=== PATIENT | male | born 1980 | race Caucasian/White ===

== ENCOUNTER 2017-03-14 02:11 | Inpatient (IN) | payer OTHER ==
[~2017-03-14] VITALS: Ht 177.8 cm; Wt 108.6 kg
--- NOTE | ~2017-03-14 | PR ---
[place], [place] [id number] UNIT #: [id number] ROOM: 404 DOCTOR: KWESI FIERRO MD BIRTHDATE: [birth year] DOS: 03/15/2017 SUBJECTIVE: The patient was seen at the Cardiology Department just prior to his exercise stress test. He is a 36-year-old man with a history of morbid obesity, who is status post gastric bypass surgery. He did have a myocardial infarction at age 31. Reportedly, a catheterization showed an occluded vessel, which could not be crossed and the patient has been managed medically since then. He came in to the hospital on this occasion because of sensations of rapid heartbeat which occurred after a session of heavy drinking. Since he has been in the hospital, he has had no documented arrhythmias. He did have some chest discomfort which was mild, but given his history of heart attack at an early age, it was felt that he should undergo a stress test at this time. PHYSICAL EXAMINATION: VITAL SIGNS: Today his pulse is 64 and regular, blood pressure is 135/80. He is afebrile. NECK: Supple. He has no jugular distention. Carotids are full. LUNGS: Respirations are unlabored. His chest is clear to auscultation and percussion. HEART: Has a regular rhythm. He has a soft S4 gallop, but no S3. ABDOMEN: Benign. EXTREMITIES: Showed no edema. DIAGNOSTIC STUDIES: Serial cardiac biomarkers have been unremarkable. IMPRESSION: 1. Atypical chest discomfort. 2. Palpitations, possibly exacerbated by heavy alcohol intake. 3. History of morbid obesity, status post gastric bypass surgery. PLAN: Thus far his evaluation has been benign. We will proceed with an exercise stress test today. Further recommendations will depend upon the results of the stress test. [facility] and I thank the hospitalist physicians for asking our advice regarding his care. [place], [place] PROGRESS NOTE NAME: KWESI MASTERS J UNIT #: [id number] ROOM: 404 DOCTOR: KWESI FIERRO MD BIRTHDATE: [birth year] KWESI FIERRO MD CM:PNTRANS [id number] KWESI FIERRO MD 03/15/17 1328 interface
[~2017-03-14 02:11] MED LIST: ASA; BUPROPION HCL200 MG; CEFUROXIME AXE250 MG PO; DAYPRO600 M1 PO; DUONEB 3 MG/3 ML3 M1 INH; IBU-8800 MG PO; ISOSORBIDE MONO30 M1 PO; ISOSORBIDE30 MG; LEVAQUIN750 M1 PO; LISINOPRIL5 MG; LOPRESSOR25 MG PO; LOVASTATIN20 MG PO; LOVESTATIN; MOTRIN800 MG PO; NITRO-DUR0.4 MG/HR; NORFLEX100 MG PO; PLAVIX75 MG; PREDNISONE10 MG PO; SKELAXIN800 MG PO; [UNRECOGNIZED DRUG - OTHER] PO
[2017-03-14 02:23] VITALS: BP 152/96
[2017-03-14 02:35] LABS: BASO # 0.1 10*3/uL (0.0-0.1); BASO % 0.8 % (0.0-1.0); EOS # 0.2 10*3/uL (0.0-0.4); EOS % 3.2 % (1.0-4.0); HEMATOCRIT 40.4 % (42.0-52.0); HEMOGLOBIN 13.5 g/dl (14.0-18.0); LYMPH # 2.3 10*3/uL (1.3-4.4); LYMPH % 36.5 % (27.0-41.0); MEAN CELL VOLUME 91.2 fl (80.0-94.0); MEAN CORPUSCULAR HGB 30.5 pg (27.0-31.0); MEAN CORPUSCULAR HGB CONC 33.4 g/dl (33.0-37.0); MONO # 0.7 10*3/uL (0.1-1.0); MONO % 10.9 % (3.0-9.0); NEUT % 48.4 % (47.0-73.0); PLATELET COUNT AUTOMATED 209 10*3/uL (130-400); RED BLOOD COUNT 4.43 10*6/uL (4.50-5.90); WHITE BLOOD COUNT 6.2 10*3/uL (4.8-10.8)
[2017-03-14 02:45] LABS: ACT PARTIAL THROMBO TIME 27.5 SECONDS (20.8-31.5)
[2017-03-14 02:52] LABS: ALBUMIN 3.7 gm/dl (3.1-4.5); ALKALINE PHOSPHATASE 80 U/L (45-117); BUN 18 mg/dl (7-24); CHLORIDE 105 mmol/L (98-107); CREATININE 0.75 mg/dL (0.70-1.30); POTASSIUM 3.2 mmol/L (3.5-5.1); SGOT/AST 43 IU/L (3-35); SGPT/ALT 59 U/L (12-78); SODIUM 142 mmol/L (136-145); TOTAL PROTEIN 7.1 gm/dL (6.4-8.2)
[2017-03-14 02:54] LABS: TROPONIN I < 0.015 ng/ml (<0.045)
[2017-03-14 04:40] VITALS: BP 136/74
--- NOTE | 2017-03-14 04:40 | NUR ---
A 36 MALE, admitted to , under the services of YANET Schultz DO with a diagnosis of CHEST PAIN W/MODERATE RISK OF ACUTE CORONARY SYNDROME, HEART PALPITATIONS. Chief complaint is CHEST PAIN. Patient arrived via ambulatory from ER. Monitor applied. Initial assessment completed. Vital signs taken and recorded. YANET SCHULTZ DO notified of admission to the unit. Orders received. See assessment for past medical history, medications and allergies. Patient and/or family oriented to unit. [facility]. Clothing/patient valuable form completed. MEDS REVIEWED WITH MARY MENDOZA
[2017-03-14] MEDS ORDERED: PRILOSEC20 M1 PO (05:01)
[2017-03-14] MEDS ORDERED: ASPIRIN ADULT L81 M2 PO (05:01)
[2017-03-14] MEDS ORDERED: B12100 MC1 PO (05:02)
[2017-03-14] MEDS ORDERED: CALCIUM 250+D1 EACH PO (05:03)
[2017-03-14] MEDS ORDERED: MULTIVITAMINS1 EAC5 PO (05:04)
[2017-03-14 08:00] VITALS: BP 119/66
--- NOTE | 2017-03-14 11:34 | NUR ---
DR. ROSENBAUM OFFICE NOTIFIED OF CONSULT REGARDING CHEST PAIN AND PALPITATIONS.
[2017-03-14 12:00] VITALS: BP 130/76
[2017-03-14 16:00] VITALS: BP 137/75
--- NOTE | 2017-03-14 16:09 | NUR ---
DR FIERRO IN TO SEE PT. PT FOR STRESS TEST IN AM.
[2017-03-14 20:00] VITALS: BP 144/88
--- NOTE | 2017-03-14 20:40 | NUR ---
CALLED DR. AVALOS ON [facility] PER PT. PT CONFIRMED HE DOES TAKE PLAVIX EVERY NIGHT. WILL REKHA TO MONITOR PT.
[2017-03-15] VITALS: BP 101/55
[2017-03-15 06:56] LABS: BASO % 0.7 % (0.0-1.0); EOS # 0.2 10*3/uL (0.0-0.4); EOS % 2.9 % (1.0-4.0); HEMATOCRIT 37.7 % (42.0-52.0); HEMOGLOBIN 12.9 g/dl (14.0-18.0); LYMPH # 1.9 10*3/uL (1.3-4.4); LYMPH % 34.2 % (27.0-41.0); MEAN CELL VOLUME 91.1 fl (80.0-94.0); MEAN CORPUSCULAR HGB 31.2 pg (27.0-31.0); MEAN CORPUSCULAR HGB CONC 34.2 g/dl (33.0-37.0); MEAN PLATELET VOLUME 10.2 fl (9.6-12.3); MONO # 0.7 10*3/uL (0.1-1.0); MONO % 11.9 % (3.0-9.0); NEUT # 2.7 10*3/uL (2.3-7.9); NEUT % 50.1 % (47.0-73.0); PLATELET COUNT AUTOMATED 181 10*3/uL (130-400); RED BLOOD COUNT 4.14 10*6/uL (4.50-5.90); RED CELL DISTRI WIDTH 13.1 % (0-14.5); WHITE BLOOD COUNT 5.4 10*3/uL (4.8-10.8)
[2017-03-15 07:20] LABS: ALBUMIN 3.2 gm/dl (3.1-4.5); ALKALINE PHOSPHATASE 75 U/L (45-117); BUN 9 mg/dl (7-24); CHLORIDE 105 mmol/L (98-107); CHOLESTEROL 120 mg/dL (<200); CREATININE 0.62 mg/dL (0.70-1.30); FREE T4 1.09 ng/dl (0.76-1.46); HDL CHOLESTEROL 76 mg/dl (40-60); POTASSIUM 3.9 mmol/L (3.5-5.1); SGOT/AST 21 IU/L (3-35); SGPT/ALT 44 U/L (12-78); SODIUM 140 mmol/L (136-145); TOTAL PROTEIN 6.5 gm/dL (6.4-8.2)
[2017-03-15 07:25] LABS: LDL CHOLESTEROL 34 mg/dL (9-159); PHOSPHOROUS 3.9 mg/dL (2.5-4.9); TRIGLYCERIDES 49 mg/dl (<150); VLDL CHOLESTEROL 10 mg/dL (6-40)
[2017-03-15 07:25] LABS: ACT PARTIAL THROMBO TIME 27.5 SECONDS (20.8-31.5)
[2017-03-15 07:28] LABS: VITAMIN D, 25-HYDROXY 29.3 ng/mL (30-100)
[2017-03-15 08:00] VITALS: BP 135/80
--- NOTE | 2017-03-15 08:45 | NUR ---
PT OFF FLOOR FOR STRESS TEST.
--- NOTE | 2017-03-15 09:00 | NUR ---
Straddle Truck Operator in to talk to patient. Patient states lives at home with . There are few steps in the home. Physician: anibal sanchez [facility]: none Patient's level of ADLs: INDEPENDENT Patient has working utilities: all working DME: none Follow-up physician's appointment after d/c: will be made by hospitalist nurse director upon discharge Does patient want to access PORTAL?: no Discharge plan discussed with patient, patient lives at home with , is independent in adls and ambulation, works, drives, patient will be going back home and denies any home needs. LORI MCALLISTER
--- NOTE | 2017-03-15 11:00 | NUR ---
INFORMED CONSENT SIGNED FOR CARDIOLYTE STRESS TEST WITH DR. FIERRO. RESTING EKG NSR, HR 73, BP 140/90. COMPLETED 12:00 OF A STANDARD EARL PROTOCOL COMPLETING 3:00 OF STAGE IV, 3.4 MPH/14% GRADE. PEAK HEART RATE OF 158 ACHIEVED WHICH IS 87% PREDICTED MAXIMUM AND A PEAK BP OF 180/60. NO ARRHYTHMIAS OR ST CHANGES NOTED. TEST TERMINATED D/T FATIGUE. HAS A HIGH EXERCISE TOLERANCE. LAST RECOVERY HR 104, BP 174/82. WAITING NUCLEAR SCANNING IN STABLE CONDITION.
--- NOTE | 2017-03-15 16:15 | NUR ---
Discharge instructions reviewed with patient/family. Patient receptive and verbalizes understanding. Follow-up care arranged. Written instructions given to patient/family. ALDAIR LOUIS
== END 2017-03-15 16:15 | disposition home or self-care (01) | DRG 303 ==
LOC: ED 02:11 → 4E 04:18 → EDHOLD 04:18 → 4E 04:26
PROVIDERS: Emergency Medicine Emergency Medical Services; Hospitalist; ADMIT Internal Medicine
PROC: 4A02XM4 Measurement of Cardiac Total Activity, External Approach (ICD-10-PCS; principal; 2017-03-15)
DX: I25.89 Other forms of chronic ischemic heart disease (principal); E66.01 Morbid (severe) obesity due to excess calories; I25.10 Atherosclerotic heart disease of native coronary artery without angina pectoris; E78.00 Pure hypercholesterolemia, unspecified; I10 Essential (primary) hypertension; F10.10 Alcohol abuse, uncomplicated; E78.5 Hyperlipidemia, unspecified; Z79.899 Other long term (current) drug therapy; Z79.82 Long term (current) use of aspirin; Z82.49 Family history of ischemic heart disease and other diseases of the circulatory system; Z98.84 Bariatric surgery status; I25.2 Old myocardial infarction; Z68.34 Body mass index [BMI] 34.0-34.9, adult

== ENCOUNTER 2019-07-01 19:21 | Emergency (ER) | payer OTHER ==
[~2019-07-01] VITALS: Ht 180.3 cm; Wt 111.1 kg
[~2019-07-01 19:21] MED LIST changes: +ASPIRIN ADULT L81 M2 PO; +B12100 MC1 PO; +CALCIUM 250+D1 EACH PO; +MULTIVITAMINS1 EAC5 PO; +PRILOSEC20 M1 PO
[2019-07-01 21:12] LABS: BASO # 0.1 10*3/uL (0.0-0.1); BASO % 0.7 % (0.0-1.0); EOS % 0.4 % (1.0-4.0); HEMATOCRIT 41.1 % (42.0-52.0); HEMOGLOBIN 13.8 g/dl (14.0-18.0); LYMPH # 1.3 10*3/uL (1.3-4.4); LYMPH % 12.6 % (27.0-41.0); MEAN CELL VOLUME 91.7 fl (80.0-94.0); MEAN CORPUSCULAR HGB 30.8 pg (27.0-31.0); MEAN CORPUSCULAR HGB CONC 33.6 g/dl (33.0-37.0); MEAN PLATELET VOLUME 10.1 fl (9.6-12.3); MONO # 0.7 10*3/uL (0.1-1.0); MONO % 6.5 % (3.0-9.0); NEUT # 8.1 10*3/uL (2.3-7.9); NEUT % 79.5 % (47.0-73.0); PLATELET COUNT AUTOMATED 227 10*3/uL (130-400); RED BLOOD COUNT 4.48 10*6/uL (4.50-5.90); RED CELL DISTRI WIDTH 12.6 % (0-14.5); WHITE BLOOD COUNT 10.1 10*3/uL (4.8-10.8)
[2019-07-01 21:26] LABS: ALBUMIN 4.1 gm/dl (3.1-4.5); ALKALINE PHOSPHATASE 67 U/L (45-117); BUN 17 mg/dl (7-24); CHLORIDE 107 mmol/L (98-107); CREATININE 0.93 mg/dL (0.70-1.30); POTASSIUM 4.1 mmol/L (3.5-5.1); SGOT/AST 26 IU/L (3-35); SGPT/ALT 38 U/L (12-78); SODIUM 139 mmol/L (136-145); TOTAL PROTEIN 7.5 gm/dL (6.4-8.2)
== END 2019-07-02 03:04 | disposition short-term general hospital (02) ==
LOC: ED 19:21
PROVIDERS: Emergency Medicine
DX: K43.6 Other and unspecified ventral hernia with obstruction, without gangrene (principal); K56.609 Unspecified intestinal obstruction, unspecified as to partial versus complete obstruction; I10 Essential (primary) hypertension; I25.10 Atherosclerotic heart disease of native coronary artery without angina pectoris; Z79.82 Long term (current) use of aspirin; Z79.899 Other long term (current) drug therapy

== ENCOUNTER 2020-07-23 18:03 | Inpatient (IN) | payer OTHER ==
[~2020-07-23] VITALS: Ht 180.3 cm; Wt 118.8 kg
[2020-07-23 18:28] VITALS: BP 135/70
[2020-07-23 19:39] LABS: BASO % 0.3 % (0.0-1.0); HEMATOCRIT 30.7 % (42.0-52.0); LYMPH # 0.4 10*3/uL (1.3-4.4); LYMPH % 5.6 % (27.0-41.0); MEAN CELL VOLUME 91.1 fl (80.0-94.0); MEAN CORPUSCULAR HGB 30.6 pg (27.0-31.0); MEAN CORPUSCULAR HGB CONC 33.6 g/dl (33.0-37.0); MEAN PLATELET VOLUME 9.5 fl (9.6-12.3); MONO # 0.4 10*3/uL (0.1-1.0); MONO % 4.9 % (3.0-9.0); NEUT # 6.3 10*3/uL (2.3-7.9); NEUT % 88.9 % (47.0-73.0); PLATELET COUNT AUTOMATED 201 10*3/uL (130-400); RED BLOOD COUNT 3.37 10*6/uL (4.50-5.90); RED CELL DISTRI WIDTH 12.8 % (0-14.5); WHITE BLOOD COUNT 7.1 10*3/uL (4.8-10.8)
[2020-07-23 19:57] LABS: ALBUMIN 3.3 gm/dl (3.1-4.5); ALKALINE PHOSPHATASE 52 U/L (45-117); BUN 23 mg/dl (7-24); CHLORIDE 110 mmol/L (98-107); CREATININE 0.62 mg/dL (0.70-1.30); LIPASE 92 U/L (73-393); POTASSIUM 4.2 mmol/L (3.5-5.1); SGOT/AST 15 IU/L (3-35); SGPT/ALT 19 U/L (12-78); SODIUM 141 mmol/L (136-145); TOTAL PROTEIN 6.4 gm/dL (6.4-8.2)
[2020-07-23 20:09] LABS: ETHYL ALCOHOL < 3.0 mg/dl (<3); TROPONIN I < 0.015 ng/ml (<0.045)
[2020-07-23 20:13] LABS: BILIRUBIN Negative (Negative); BLOOD Negative (Negative); CLARITY Clear (Clear); COLOR Yellow (Yellow); GLUCOSE Negative (Negative); KETONE 1+ (Negative); LEUKO ESTERASE Negative (Negative); NITRITE Negative (Negative); PH 5.5 (4.5-8.0); SPECIFIC GRAVITY 1.025 (1.001-1.030); UROBILINOGEN 0.2 E.U./dl (0.0-1.0)
[2020-07-23 20:16] LABS: URINE AMPHETAMINES < 1000 (1000ng/ml); URINE BARBITURATES < 200 (200ng/ml); URINE BENZODIAZEPINES < 200 (200ng/ml); URINE CANNABINOIDS (THC) < 50 (50ng/ml); URINE COCAINE < 300 (300ng/ml); URINE METHADONE < 300 (300ng/ml); URINE OPIATES < 300 (300ng/ml)
[2020-07-23 20:22] LABS: URINE PHENCYCLIDINE < 25 (25ng/ml)
[2020-07-23 21:04] LABS: BACTERIA TRACE; WBC 0-2 wbc/hpf (0-5)
[2020-07-23 22:10] VITALS: BP 119/61
[2020-07-24] VITALS: BP 137/64
[2020-07-24 06:26] LABS: BASO % 0.4 % (0.0-1.0); EOS # 0.1 10*3/uL (0.0-0.4); EOS % 0.9 % (1.0-4.0); HEMATOCRIT 25.6 % (42.0-52.0); LYMPH % 14.8 % (27.0-41.0); MEAN CELL VOLUME 93.8 fl (80.0-94.0); MEAN CORPUSCULAR HGB 30.8 pg (27.0-31.0); MEAN CORPUSCULAR HGB CONC 32.8 g/dl (33.0-37.0); MEAN PLATELET VOLUME 9.9 fl (9.6-12.3); MONO # 0.8 10*3/uL (0.1-1.0); MONO % 11.3 % (3.0-9.0); NEUT % 72.3 % (47.0-73.0); PLATELET COUNT AUTOMATED 174 10*3/uL (130-400); RED BLOOD COUNT 2.73 10*6/uL (4.50-5.90); RED CELL DISTRI WIDTH 12.9 % (0-14.5); WHITE BLOOD COUNT 6.9 10*3/uL (4.8-10.8)
[2020-07-24 06:52] LABS: BUN 16 mg/dl (7-24); CHLORIDE 111 mmol/L (98-107); CHOLESTEROL 110 mg/dL (<200); CREATININE 0.66 mg/dL (0.70-1.30); HDL CHOLESTEROL 57 mg/dl (40-60); LDL CHOLESTEROL 32 mg/dL (9-159); POTASSIUM 3.6 mmol/L (3.5-5.1); SODIUM 140 mmol/L (136-145); TRIGLYCERIDES 104 mg/dl (<150); VLDL CHOLESTEROL 21 mg/dL (6-40)
[2020-07-24 07:47] LABS: ACT PARTIAL THROMBO TIME 25.2 SECONDS (20.0-32.1)
[2020-07-24 07:50] LABS: ALBUMIN 2.9 gm/dl (3.1-4.5)
[2020-07-24 07:55] LABS: VITAMIN D, 25-HYDROXY 17.4 ng/mL (30-100)
[2020-07-24 08:00] VITALS: BP 122/71
[2020-07-24 11:52] LABS: HEMATOCRIT 25.9 % (42.0-52.0)
[2020-07-24 17:50] VITALS: BP 106/56
[2020-07-24 18:05] VITALS: BP 104/65
[2020-07-24 18:20] VITALS: BP 118/67
[2020-07-24 18:42] LABS: HEMATOCRIT 24.7 % (42.0-52.0)
[2020-07-24 20:00] VITALS: BP 131/66
[2020-07-25] VITALS: BP 116/65
[2020-07-25 06:51] LABS: BASO % 0.5 % (0.0-1.0); EOS # 0.1 10*3/uL (0.0-0.4); EOS % 2.4 % (1.0-4.0); HEMATOCRIT 25.4 % (42.0-52.0); LYMPH # 0.5 10*3/uL (1.3-4.4); LYMPH % 14.3 % (27.0-41.0); MEAN CORPUSCULAR HGB 30.8 pg (27.0-31.0); MEAN CORPUSCULAR HGB CONC 33.5 g/dl (33.0-37.0); MEAN PLATELET VOLUME 9.9 fl (9.6-12.3); MONO # 0.5 10*3/uL (0.1-1.0); NEUT # 2.6 10*3/uL (2.3-7.9); NEUT % 69.5 % (47.0-73.0); PLATELET COUNT AUTOMATED 158 10*3/uL (130-400); RED BLOOD COUNT 2.76 10*6/uL (4.50-5.90); RED CELL DISTRI WIDTH 12.9 % (0-14.5); WHITE BLOOD COUNT 3.7 10*3/uL (4.8-10.8)
[2020-07-25 07:05] LABS: BUN 8 mg/dl (7-24); CHLORIDE 109 mmol/L (98-107); CREATININE 0.61 mg/dL (0.70-1.30); SODIUM 140 mmol/L (136-145)
[2020-07-25 08:00] VITALS: BP 119/62
[2020-07-25 12:00] VITALS: BP 134/69
[2020-07-25 16:00] VITALS: BP 129/68
[2020-07-25] MEDS ORDERED: LOPRESSOR25 MG PO (16:36)
[2020-07-25] MEDS ORDERED: LOVASTATIN20 MG PO (16:36)
[2020-07-25] MEDS ORDERED: PRILOSEC20 M1 PO ×3 (16:36→16:38)
== END 2020-07-25 18:33 | disposition left against medical advice (07) | DRG 379 ==
LOC: ED 18:03 → 5E 20:38 → EDHOLD 20:38 → 5E 22:52
PROVIDERS: Internal Medicine; Internal Medicine Gastroenterology; Physician Assistant; ADMIT Family Medicine; ATTEND Family Medicine
PROC: 0DB58ZX Excision of Esophagus, Via Natural or Artificial Opening Endoscopic, Diagnostic (ICD-10-PCS; principal; 2020-07-24)
PROC: 0DJD8ZZ Inspection of Lower Intestinal Tract, Via Natural or Artificial Opening Endoscopic (ICD-10-PCS; 2020-07-24)
DX: K28.4 Chronic or unspecified gastrojejunal ulcer with hemorrhage (principal); D64.9 Anemia, unspecified; F10.10 Alcohol abuse, uncomplicated; E78.00 Pure hypercholesterolemia, unspecified; I25.10 Atherosclerotic heart disease of native coronary artery without angina pectoris; I10 Essential (primary) hypertension; I25.2 Old myocardial infarction; E66.9 Obesity, unspecified; E87.8 Other disorders of electrolyte and fluid balance, not elsewhere classified; R73.9 Hyperglycemia, unspecified; E55.9 Vitamin D deficiency, unspecified; D72.829 Elevated white blood cell count, unspecified; Z68.36 Body mass index [BMI] 36.0-36.9, adult; Z53.29 Procedure and treatment not carried out because of patient's decision for other reasons

== ENCOUNTER 2020-09-26 15:28 | Emergency (ER) | payer OTHER ==
[~2020-09-26] VITALS: Ht 177.8 cm; Wt 107.5 kg
== END 2020-09-26 16:50 | disposition left against medical advice (07) ==
LOC: ED 15:28
DX: R10.9 Unspecified abdominal pain (principal); Z53.21 Procedure and treatment not carried out due to patient leaving prior to being seen by health care provider